=== PATIENT | female | born 1975 | race American Indian/Alaskan Native ===

== ENCOUNTER 2017-09-02 18:35 | Emergency (ER) | payer BC, OTHER ==
[~2017-09-02] VITALS: Ht 152.4 cm; Wt 94.8 kg
[~2017-09-02 18:35] MED LIST: ASPIRIN EC325 MG PO; DICYCLOMINE HCL10 MG PO; FLOMAX0.4 MG PO; NORCO 5-325 TA1 EACH PO; PROTONIX40 MG PO; ZOFRAN ODT8 MG PO
[2017-09-02] MEDS ORDERED: ZOFRAN ODT4 MG PO (22:37)
== END 2017-09-02 23:33 | disposition home or self-care (01) ==
LOC: ED 18:35
DX: R10.10 Upper abdominal pain, unspecified (principal); G89.29 Other chronic pain; Z90.49 Acquired absence of other specified parts of digestive tract; Z98.51 Tubal ligation status; Z98.890 Other specified postprocedural states; Z79.899 Other long term (current) drug therapy
CPT/HCPCS: 74177; 80053; 81001; 83690; 84703; 85025; 96361; 96374; 96375; 96376; 99284; J1170; J2405; J7030; Q9967

== ENCOUNTER 2018-10-04 15:16 | Emergency (ER) | payer BC, OTHER ==
[~2018-10-04] VITALS: Ht 152.4 cm; Wt 98.0 kg
[~2018-10-04 15:16] MED LIST changes: +ZOFRAN ODT4 MG PO
[2018-10-04] MEDS ORDERED: MEDROXYPROGESTE10 MG PO (15:24)
== END 2018-10-04 15:32 | disposition home or self-care (01) ==
LOC: ED 15:16
DX: M79.642 Pain in left hand (principal)

== ENCOUNTER 2020-09-08 10:04 | Emergency (ER) | payer BC, OTHER ==
[~2020-09-08] VITALS: Ht 152.4 cm; Wt 94.3 kg
[~2020-09-08 10:04] MED LIST changes: +MEDROXYPROGESTE10 MG PO
[2020-09-08] MEDS ORDERED: IBUPROFEN600 MG PO (10:20)
== END 2020-09-08 16:30 | disposition home or self-care (01) ==
LOC: ED 10:04
DX: R10.31 Right lower quadrant pain (principal); Z20.828 Contact with and (suspected) exposure to other viral communicable diseases
CPT/HCPCS: 74177; 80053; 81001; 84703; 85025; 99284-25; C9803; Q9967; U0003